=== PATIENT | female | born 1980 | race Caucasian/White ===

== ENCOUNTER 2019-04-22 09:01 | Emergency (ER) | payer MEDICAID ==
[~2019-04-22] VITALS: Ht 157.5 cm; Wt 68.0 kg
[2019-04-22 09:06] VITALS: BP 149/98
--- NOTE | 2019-04-22 09:21 | NUR ---
Patient discharged to home in stable condition. Written and verbal after care instructions given. Patient verbalizes understanding of instruction.
== END 2019-04-22 09:21 | disposition home or self-care (01) ==
LOC: ER 09:07
DX: H66.91 Otitis media, unspecified, right ear (principal); Z98.890 Other specified postprocedural states